=== PATIENT | male | born 1995 | race Caucasian/White ===

== ENCOUNTER 2023-07-23 16:13 | Emergency (ER) | payer OTHER, BC, SELFPAY ==
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
[2023-07-23 16:26] VITALS: BP 130/92; PULSE 82; RESP 16; TEMP 36.8; O2SAT 100
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
== END 2023-07-23 17:00 | disposition home or self-care (01) ==
PROVIDERS: Emergency Provider Nurse Practitioner Family
DX: S40.012A Contusion of left shoulder, initial encounter (principal); V43.52XA Car driver injured in collision with other type car in traffic accident, initial encounter
CPT/HCPCS: 73030; 99213; G0463

== ENCOUNTER 2024-09-21 09:26 | Emergency (ER) | payer OTHER, SELFPAY ==
[2024-09-21 09:38] VITALS: BP 137/86; PULSE 68; RESP 16; TEMP 35.9; O2SAT 99
--- NOTE | 2024-09-21 10:12 | ED.URI ---
HPI - URI/Sore Throat General Stated Complaint: sore throat/congestion Time Seen by Provider: 09/21/24 10:12 Source: patient, RN notes reviewed and old records reviewed Mode of arrival: ambulatory Limitations: no limitations History of Present Illness HPI Narrative: Patient presents with complaints cold symptoms for 4-5 days. He reports that he has been taking [id number] medications with good results intermittently throughout the course of his illness. He reports that he is feeling better today than he was at the onset of symptoms. Does voice some concerns for strep throat, says he was exposed to this. He is afebrile and in no distress Related Data Home Medications ?Medication ?Instructions ?Recorded ?Confirmed ?Last Taken ?Type No Home Medications 09/21/24 Unknown History Allergies Allergy/AdvReac Type Severity Reaction Status Date / Time No Known Allergies Allergy Verified 09/21/24 09:36 Review of Systems Review of Systems: All systems reviewed & are unremarkable except as noted in HPI and below Constitutional: Constitutional: Reports as per HPI and Reports no additional constitutional complaints ENT: Reports system reviewed and no additional complaints, except as documented, Reports nasal congestion, Reports nasal discharge and Reports sore throat Cardiovascular: Cardiovascular: Reports no additional cardiovascular complaints Respiratory: Respiratory: Reports no additional respiratory complaints and Reports cough Gastrointestinal: Gastrointestinal: Reports no additional gastrointestinal complaints [facility] Comments At the time of my signature, I reviewed and agree with the nursing past medical, surgical, social, and family history. There is no relevant family history pertinent to the patient complaint. Exam Const: General: cooperative, no acute distress, alert and awake Orientation/consciousness: oriented to person, oriented to place and oriented to time HENMT: Head: normal to inspection Ears: TM's normal bilaterally Mouth: Yes moist mucous membranes Throat: posterior oropharynx abnormal erythema Resp: Effort & Inspection: normal respiratory effort and able to speak in complete sentences Auscultation: clear to auscultation bilaterally, no crackles, no rales, no rhonchi and no wheezes Cardio: Palpation: normal PMI Rate: regular rate Rhythm: regular rhythm Heart sounds: S1 normal heart sound present and S2 normal heart sound present Neuro: General: oriented to person, oriented to place and oriented to time Cranial nerves: Yes CN's II-XII intact bilaterally Psych: Appearance: grossly normal Thought process: Normal thought process present Insight: Good insight present (Psych) Judgement: Good judgement present (Psych) Course Course Level of Care: Express Care Visit Vital Signs Vital signs: Vital Signs Temperature 96.6 F L 09/21/24 09:38 Pulse Rate 68 09/21/24 09:38 Respiratory Rate 16 09/21/24 09:38 Blood Pressure 137/86 09/21/24 09:38 Pulse Oximetry 99 09/21/24 09:38 Oxygen Delivery Room Air 09/21/24 09:38 Temperature 96.6 F L 09/21/24 09:38 Pulse Rate 68 09/21/24 09:38 Respiratory Rate 16 09/21/24 09:38 Blood Pressure 137/86 09/21/24 09:38 Pulse Oximetry 99 09/21/24 09:38 Oxygen Delivery Room Air 09/21/24 09:38 Reviewed MDM - URI/Sore Throat MDM Narrative Medical decision making narrative: Reassuring physical exam. Negative strep, culture pending. Symptoms likely viral in origin. Discharge instructions reviewed with patient, as well as provided in writing per nursing staff. The instructions also include specific and strict return/GO TO THE ER as well as f/u information. All questions have been answered, and the patient deny any further questions with discharge and discharge plan. Some parts of this dictation were generated by voice recognition software and may contain typographical and/or grammatical inaccuracies. Differential Diagnosis Differential diagnosis: Likely upper respiratory infection, otitis media, sinusitis, viral infection and pharyngitis Medical Records Attestation: I reviewed the patient's medical records. Lab Data Attestation: I reviewed the patient's lab results. Discharge Plan Discharge Clinical Impression: URI (upper respiratory infection) Qualifiers: URI type: unspecified viral URI Qualified Code(s): J06.9 - Acute upper respiratory infection, unspecified Patient Disposition: Home, Self-Care Condition: Stable Instructions: Antibiotic Form, Cold Symptoms (ED) Additional Instructions: Take [id number] medications for your symptoms. Follow package instructions. Emergency department for new or worse symptoms. Follow-up with your primary care provider Patient Language: Vietnamese Prescriptions: No Action No Home Medications Follow-up/Referrals: UNKNOWN,DOCTOR [Primary Care Provider] - Time of Disposition: 10:29
[2024-09-21 10:37] LABS: EDSTREPNEGPOS1 Negative (Negative)
== END 2024-09-21 10:35 | disposition home or self-care (01) ==
PROVIDERS: Emergency Provider Nurse Practitioner Family
DX: J06.9 Acute upper respiratory infection, unspecified (principal)
CPT/HCPCS: 87081; 87880; 99213; G0463